=== PATIENT | female | born 1945 ===

== ENCOUNTER → 2019-08-30 14:06 | Outpatient (BNVA) | payer MEDICARE, SELFPAY | PROVIDERS: Family Provider Student in an Organized Health Care Education/Training Program; PCP Internal Medicine; Visit Provider Nurse Practitioner Family | DX: N30.20 Other chronic cystitis without hematuria (principal); R31.0 Gross hematuria | CPT/HCPCS: 81001; 87086 ==

== ENCOUNTER 2020-01-31 11:51 | Outpatient (CLI) | payer MEDICARE, SELFPAY ==
--- NOTE | 2020-01-31 12:00 | XRR_ITS ---
PROCEDURE INFORMATION: Exam: XR Abdomen, 1 View Exam date and time: 01/31/2020 12:08 PM Age: 75 years old Clinical indication: Condition or disease; Other: Stones TECHNIQUE: Imaging protocol: XR of the abdomen. Views: Frontal supine view of the abdomen. 1 View. COMPARISON: CT abdomen pelvis w con* [id number] 01/11/2020 3:17 PM FINDINGS: Gastrointestinal tract: Normal. No bowel dilation. Organs: There is calcified stone in the left proximal urinary collecting system measuring 3.6 mm at the level of the left L2 transverse process. There is a 7 mm caliceal stone in the projection of the right lower collecting system. Bones/joints: Metallic left knee arthroplasty in good position. Osteoarthritis lumbar spine XR/XR KUB [id number] IMPRESSION: 1. No acute GI abnormality. 2. Urinary tract stones in both kidneys as described. 3. Lumbar spine osteoarthritis 4. Metallic arthroplasty left hip
== END 2020-01-31 11:52 | disposition home or self-care (01) ==
LOC: RAD 11:54
PROVIDERS: Family Provider Student in an Organized Health Care Education/Training Program; PCP Internal Medicine; Visit Provider Nurse Practitioner Family
DX: N20.0 Calculus of kidney (principal); M47.816 Spondylosis without myelopathy or radiculopathy, lumbar region; Z96.642 Presence of left artificial hip joint
CPT/HCPCS: 74018; 81001

== ENCOUNTER 2020-12-16 06:00 | Outpatient (CLI) | payer MEDICARE, SELFPAY | END 2020-12-16 06:01 | disposition home or self-care (01) | LOC: RAD 11-05 14:35 | PROVIDERS: PCP Family Medicine; Visit Provider Urology | DX: N30.20 Other chronic cystitis without hematuria (principal) | CPT/HCPCS: 81003 ==

== ENCOUNTER 2020-12-16 13:16 | Outpatient (CLI) | payer MEDICARE, SELFPAY ==
--- NOTE | 2020-12-16 13:24 | XRR_ITS ---
PROCEDURE INFORMATION: Exam: XR Abdomen Exam date and time: 12/16/2020 1:24 PM Age: 75 years old Clinical indication: Condition or disease; Kidney or ureter condition; Calculus (stone) in kidney; Additional info: Kidney stones TECHNIQUE: Imaging protocol: XR of the abdomen. Views: Frontal supine view of the abdomen. 1 View. COMPARISON: 1. CR XR KUB [id number] 01/31/2020 12:[address] abdomen pelvis w con* [id number] 01/11/2020 3:[address] Abdomen/Pelvis Renal [id number] 12/07/2017 1:03 PM FINDINGS: Gastrointestinal tract: Normal. No bowel dilation. Organs: Renal calyceal stones noted on CT scan dated January 11, 2020, are not visualized on today's KUB. Enlarged left renal shadow is secondary to 10 cm exophytic cyst arising from the lower pole left kidney noted on previous CT scan. Vasculature: One or more calcified pelvic phleboliths. Bones/joints: Stable left total hip replacement. Levoscoliosis. Moderate to severe multilevel spine degenerative changes including degenerative disc disease, spondylosis and facet degenerative changes. XR/XR KUB [id number] IMPRESSION: 1. Renal calyceal stones noted on CT scan dated January 11, 2020, are not visualized on today's KUB. 2. Enlarged left renal shadow is secondary to 10 cm exophytic cyst arising from the lower pole left kidney noted on previous CT scan.
== END 2020-12-16 13:17 | disposition home or self-care (01) ==
PROVIDERS: PCP Family Medicine; Visit Provider Urology
DX: N20.0 Calculus of kidney (principal)
CPT/HCPCS: 74018

== ENCOUNTER 2022-02-10 09:34 | Outpatient (CLI) | payer MEDICARE, SELFPAY ==
--- NOTE | 2022-02-10 09:47 | XR_ITS ---
WS: [id number] KUB, AP view, 02/10/2022 Clinical Data: STONES Comparison: KUB, 12/16/2020. Findings: No abnormal intraabdominal masses are seen. There is a calcification overlying the midportion of the right kidney adjacent to the right 12th rib. There is no dilatated small bowel or evidence of obstruc tion. There is a shadow on the left side of the abdomen which probably represents the left renal cyst. Ther e is a levoscoliosis. There is a left hip arthroplasty. There are phleboliths in the true pelvis. XR/XR KUB [id number] Impression: Possible right renal calculus.
== END 2022-02-10 09:35 | disposition home or self-care (01) ==
LOC: RAD 09:37
PROVIDERS: PCP Family Medicine; Visit Provider Urology
DX: N20.0 Calculus of kidney (principal); N39.0 Urinary tract infection, site not specified
CPT/HCPCS: 74018; 81003; 99213